=== PATIENT | female | born 1975 | race Caucasian/White ===

== ENCOUNTER → 2019-03-22 16:27 | Outpatient (CLI) | payer SELFPAY ==
[2019-03-24 11:27] LABS: Cancer Antigen 125 29.5 U/mL (0.0-38.1)
== END ==
PROVIDERS: Visit Provider Obstetrics & Gynecology
DX: N83.209 Unspecified ovarian cyst, unspecified side (principal)
CPT/HCPCS: 36415; 86304

== ENCOUNTER 2019-03-29 06:01 | Day surgery (SDC) | payer SELFPAY ==
[2019-03-27 15:59] LABS: Hematocrit 39.7 % (37-47); Hemoglobin 12.7 g/dL (12.0-15.0); Mean Corpuscular Hgb 28.6 pg (27.0-32.0); Mean Corpuscular Volume 89.4 fL (81-99); Mean Platelet Vol. 10.3 fl (6.2-12.0); Platelet Count 361 K/mm3 (150-450); RBC Distribution Width SD 42.3 fl (35.1-43.9); Red Blood Count 4.44 M/mm3 (4.2-5.4); White Blood Count 8.4 K/mm3 (4.4-11.0)
[2019-03-27 16:07] LABS: Partial Thromboplast Time 24.7 Seconds (24.1-36.2); Prothrombin Time (Protime)PT. 12.9 SECONDS (11.7-14.9)
[2019-03-27 16:16] LABS: Creatinine, Serum 0.82 mg/dL (0.55-1.02); EST Glomerular Filtration Rate 82 mL/min (>60); Est Glom Filt Rate - Afr Amer 99 mL/min (>60)
[2019-03-27 16:32] LABS: Internal QC Validated? YES +Cl - CLEAR BKGD; Pregnancy, Serum, hCG Quali. NEGATIVE Negative
--- NOTE | 2019-03-28 21:39 | HP.PCM_ITS ---
History and Physical Date of Admission: 03/29/19 Surgical History and Physical Mabel Butcher, a 43 year old female 4 0 0 0 4, presents for Dx L/S and RSO on March 29, 2019 at 7:30. -- Large Ovarian Cyst -- Cyst on (L) Ovary which began US done 03-01-19. Mabel claims it started suddenly and has been present Pain x 6 months. It occurs intermittantly. It is located in the RLQ of the abdomen. Mabel characterizes the quality sharp.; Mabel characterizes the quality stabbing. Severity is moderate and very concerned; Associated signs and symptoms are intermittant RLQ discomfort and pulling. Additional comments are: Referred by .; Additional comments are: Large right ovarian simple cyst seen measures 12.5 x 7.8 x 10.1cm. measures slightly larger then on last ultrasound done 03/01/19; Additional comments are: U/S today shows cyst to be on right rather than left ovary. CA- 125 approx 29.5. MEDICATIONS HISTORY: ALLERGIES: No Known Allergies Infections - Chicken pox Illnesses - GDM Accidents - None Hospitalizations - see surgery Review of Systems: GENERAL - Denies fever, or chills SKIN - Denies skin changes EYES - Denies visual changes EARS - Denies difficulty hearing NOSE - Denies nasal congestion or bleeding MOUTH - Denies sore throat or difficulty swallowing NECK - Denies pain or swelling RESPIRATORY - Denies shortness of breath or wheezing CARDIOVASCULAR - Denies palpitations or chest pain GASTROINTESTINAL - Denies nausea, vomiting, diarrhea, constipation GENITOURINARY - Denies dysuria, frequency of urination, incontinence of urine MUSCULOSKELETAL - Denies joint or muscle pain NEUROLOGICAL - Denies localized numbness or weakness PSYCHIATRIC - Denies depression or anxiety ENDOCRINE - Denies heat or cold intolerance, weight loss or gain HEMATO-IMMUNOLOGIC - Denies excessive bleeding with cuts SOCIAL HISTORY: Alcohol Use - socially Smoking - Never Diet - low in sweets Lifestyle - moderate stress lifestyle and Exercise - active Seat Belt Use - always Employer - Self Employed Illicit Drug Use - None Sexual Activity - Spouse-Sig Other Name - Flavio Butcher Spouse-Sig Other Occupation - Self Employed/[employer] Children Name(s) - 4 children Control - condoms FAMILY HISTORY: MENSTRUAL HISTORY: LMP Known?- Definite Amount/Duration - 3 to 6 days, Regularity - Regular, Frequency - monthly days, LMP - 03/23/19, Age Onset Menarche - 12 PAST PREGNANCIES: Total Pregnancies - 4; Full Term Pregnancies - 4; Premature - 0; Abortions, Ind uced - 0; Abortions, Spontaneous - 0; Ectopics - 0; Multiple Births - 0; Living Children - 4 SURGICAL HISTORY: 1. 12/22/2002 2. 08/09/2006 ; Dr. Arteaga 3. 03/11/2012 ; Dr. Arteaga 4. 08/27/2016 ; Dr. Arteaga PHYSICAL EXAM BP- 132/74 Sitting, Right arm, regular cuff Weight- 156.00449 lbs Height- 61.5 inch BMI:29.06 CONSTITUTIONAL - NAD, well nourished, and well developed SKIN - No rash, lesions, or ulcers HEENT - Normocephalic, PERRLA, EOMI NECK - No nodes, no nuchal rigidity and thyroid normal size and texture LYMPH NODES - Palpation of lymph nodes in neck and groins within normal limits LUNGS - CTA x2 without wheezes, crackles or rales CARDIAC - Regular rate and rhythm without rubs, murmurs, or gallops ABDOMEN - Without hepatosplenomegaly, distention, masses, rebound, or guarding; normal bowel sounds; no hernias EXTREMITIES - No edema or calf tenderness NEUROLOGICAL - Cranial nerves II-XII grossly intact PSYCHIATRIC - A and O to time, place, person, mood and affect External Genital Vagina - non-tender without lesions Urethra/Urethral Meatus - non-tender Bladder - non-tender Vagina - vaginal edmonds are pink and moist without loss of rugae and no evidence of atropy Cervix - without cervical motion tenderness and has normal size and features without evident lesions Uterus - multiparous size 6 cm & wt 75-125 g Adnexa - clear without masses or tenderness, Pelvic mass to the umbilicus c/w ovarian cyst and mobile ASSESSMENT/PLAN: 1. Ovarian Cyst Ot/unspec/Right CA-125 benign level and is a simple cyst, will proceed with a Dx L/S and RSO. Discussed RBAs and all questions answered.
[2019-03-29] VITALS (12 sets, daily range): BP systolic 92–117; BP diastolic 61–77; PULSE 65–87; RESP 16–18; TEMP 36.3–37; O2SAT 94–100; BMI 29.1
--- NOTE | 2019-03-29 06:20 | EKG12_ITS ---
Test Reason : PRE OP Blood Pressure : / mmHG Vent. Rate : 078 BPM Atrial Rate : 078 BPM P-R Int : 166 ms QRS Dur : 084 ms QT Int : 382 ms P-R-T Axes : 044 012 049 degrees QTc Int : 435 ms Normal sinus rhythm Normal ECG No previous ECGs available Confirmed by MIMI VAZQUEZ ([id number]), photographic editor ANNABELLE GAMBLE ([id number]) on 03/30/2019 9:50:18 AM Referred By: Watson Ham Confirmed By:MIMI VAZQUEZ
[2019-03-29 06:42] LABS: Internal QC Validated? YES +Cl - CLEAR BKGD; Pregnancy, Urine Negative Negative
[2019-03-29] MEDS: Lactated Ringers 1,000 ML 100 ML IV (06:46)
--- NOTE | 2019-03-29 07:25 | OP.PCM_ITS ---
Report of Operation Date of Procedure: 03/29/19 Pre-Operative Diagnosis: Large Right Ovarian Cyst Post-Operative Diagnosis: Large Right Ovarian Cyst Surgery/Procedure Performed:: Diagnostic Laparoscopy, Right Salpingo- Oophorectomy Description of Surgical Findings:: Normal-appearing uterus and left fallopian tube and ovary. 12 cm simple appearing right ovarian cyst. window sash installer: Micaela Hernandez Type of Anesthesia:: General - No tracheal Anesthesiologist: Ruby Summers Specimen's removed: Right fallopian tube and ovary Estimated Blood Loss (mL): Minimal Fluids Replaced: Crystalloid Description of Procedure: Surgeon: Watson Ham MD, FACOG Indications: This is a 43 year old patient who has a large right ovarian cyst which has been causing intermittent pain. Ultrasound and CA-125 suggest it is benign. All questions were answered to consider the patient well-informed. Procedure: The patient was taken to the operating room where after induction of general anesthesia, she was placed in the dorsolithotomy position and prepped and draped in the usual sterile fashion. The bladder was drained of approximately 50 cc of clear yellow urine with a catheter. Anterior cervix was grasped with the tenaculum. Conn cannula was placed and attention was turned toward the laparoscopic portion of the procedure. Approximately 25 cc of half percent ropivacaine was injected supraumbilically, suprapubically and midway between. A 5 mm bladeless trocar was placed supraumbilically and intraperitoneal placement confirmed. After CO2 insufflation was complete, a 10/12 mm bladeless trocar was introduced suprapubically. The above findings were noted. A 5 mm blade less port was then placed midway between these 2 ports. Each fallopian tube was identified to its fimbriated along with the large right ovarian cyst which was noted to be on a stalk. An Enseal device was used to divide the infundibulopelvic ligament on the right and mesosalpinx to the uterus. The cyst was drained of 50 cc of clear fluid with a needle suction aspirator and tube and ovary placed in an Endobag and brought through the lower port. Fascia on the lower port was closed with running 0 Vicryl suture. The peritoneal cavity and upper abdomen were examined and noted to be normal. Photographs were taken. The tip of the con cannula was noted to protrude through the anterior uterine surface but when vaginal instruments removed no bleeding was noted. Laparoscopic instruments with as much CO2 gas as possible were removed and incisions were closed with interrupted 4-0 Monocryl suture. Steri-Strips were placed across the incisions. Patient tolerated procedure well was taken to recovery room in satisfactory condition. Sponge, instrument, and needle counts were all reportedly correct. Estimated blood loss for the case was minimal. There were no apparent complic ations of the surgery. Cefotan 2 g IV was given prior to beginning the operative procedure. Specimens to pathology was right tube and ovary Grafts/Implants Used: None - Complications None - Admit VTE Documentation VTE Present on Admission: Yes VTE Mechan Device Prophylaxis: SCD's
--- NOTE | 2019-03-29 07:30 | OV_PTH ---
PATIENT: CAT RUIZ LOC: [facility] [place] U#:[id number] AGE/SX: 43/F ROOM: RE03/29/[address]: Dr. Watson Ham MD : [id number] BED: DIS: 03/29/2019 SPEC #: [id number] RECD: 03/29/19 13:38 STATUS: ABDIRASHID CYNTHIA #: [id number] MARY: 03/29/19 07:[address]: Watson Ham DEPT: SURGICAL PATHOLOGY RECD BY: Wilbur Wolf ENTERED: 03/29/19 14:00 SP TYPE: OVARY OTHR DR: Dr. Watson Arteaga MD Tissues: Right ovary Procedures: Special Stain Group II Mucicarmine Stain (control) Surgery Specimen Level V HEADER OPERATION: Diagnostic laparoscopy, salpingo-oophorectomy PRE-OP DIAGNOSIS: Right ovarian cyst TISSUE SUBMITTED: Right tube and ovary MICROSCOPIC DIAGNOSIS Right tube and ovary, salpingo-oophorectomy: Ovary - mucinous cystadenoma. See comment. - Physiologic follicular cyst. Fallopian tube - no pathologic diagnosis. SJ:ashley 03/30/19 COMMENT Mucin stain with matched control is used in the evaluation of the specimen. The lining epithelial cells of the cyst are positive for mucin. Case has been reviewed in consultation with Dr. Mcmahon who concurs with the above diagnosis. IDC:AM MICROSCOPIC DESCRIPTION Slides are reviewed. GROSS DESCRIPTION Received in fixative is one container labeled with the patient's name and designated right tube and ovary. The specimen consists of a smooth, glistening, cystic pink ovary measuring 10.5 x 8 x 2.5 cm. Attached to this is a portion of fimbrial end with fallopian tube measuring 2 x 1 cm. No obvious tubo-ovarian adhesions are identified. Present free in the container is a portion of a fallopian tube measuring 6 x 0.5 cm. The external surface of the cystic ovary is inked. Serial sections reveal a cyst occupying more than 90% of the ovarian parenchyma. The inner lining is smooth and glistening. The cyst wall ranges in thickness from 0.1 to 0.4 cm. Valet Parking Attendant sections are submitted in five cassettes as follows: 1??fallopian tube, 2-5 - ovary. / AM:ashley 03/29/19 TC:1 CPT: 59943, 82055
--- NOTE | 2019-03-29 07:32 | DCINST_ITS ---
Discharge Diet: No Restrictions Discharge Activity: Return to Normal Activity, May Drive - when you are no longer taking pain/narcotic medicines., May Shower, May Take a Tub Bath May resume sexual activity in: 3 weeks Additional Activity Instructions:: Ambulate often the next week after surgery. Nothing in the vagina for 5 days. Call your doctor if your incision/area has: Continuous Slow Oozing, Sudden Increased Bleeding, Increased Pain/ Swelling, Increased Redness, Foul Smelling Discharge Call your doctor if you observe: Fever of 101 or Higher, Inability to urinate, Inability to have a bowel movement, Using more than one pad per hour Allergies/Adverse Reactions: Allergies No Known Allergies Allergy (Verified 03/29/19 06:27) Medications to take at Discharge Cholecalciferol (VIT D3) [Vitamin D] 1,000 unit PO DAILY 03/28/19 Cleavers 2 drp PO DAILY 03/28/19 Echinacea 1 drp PO BID 03/28/19 Flaxseed Oil 1,000 mg PO DAILY 03/28/19 Herbal Fiber Blend 2 cap PO DAILY 03/28/19 L.acidoph,Paracasei, B.lactis [Probiotic] 1 ea PO DAILY 03/28/19 Lymph Gland Cleanse 2 cap PO TID 03/28/19 Mv-Min/Vit C/Glut/Lysine/Hb124 [Immune Support Chewable Tablet] 2 ea PO DAILY 03/28/19 Whole Food Vitamin 1 tab PO DAILY 03/28/19 Oxycodone [Oxyir] 5 mg PO Q6H PRN PRN 7 Days #10 tablet 03/29/19 The following prescriptions were given: Oxycodone [Oxyir] 5 mg PO Q6H PRN PRN 7 Days #10 tablet PRN Reason: Pain Score 6-10/10 Transmission Status: Sent to [facility] Primary Care Physician: Watson Arteaga MD [Primary Care Provider] - Test Results: Test results from this visit will be discussed in further detail at your follow- up appointment, if applicable. Please Follow Up With: Watson Ham MD - [phone] When: 2 to 3 weeks
[2019-03-29] MEDS: Ropivacaine 0.5% 30 ML Vial (07:45)
== END 2019-03-29 11:47 | disposition home or self-care (01) ==
LOC: SDC 06:03 → AC 06:06
PROVIDERS: Anesthesiology; PCP Family Medicine; Referring Provider Obstetrics & Gynecology; Visit Provider Obstetrics & Gynecology
PROC: (CPT 49320; principal; 2019-03-29 07:15)
DX: D27.0 Benign neoplasm of right ovary (principal); N83.01 Follicular cyst of right ovary
CPT/HCPCS: 00840; 58661; 36415; 81025; 82565; 84703; 85027; 85610; 85730; 86850; 86900; 86901; 88305; 88307; 88313; 93005; J7120; J2405; Q9968